=== PATIENT | male | born 1955 | race Caucasian/White ===

== ENCOUNTER → 2016-08-25 | Outpatient (CLI) | payer OTHER ==
[~2016-08-25] MED LIST: ADDERALL XR 2020 M1 PO; ADVAIR 2501 DISK W/D PO; ALBUTEROL17 GM INH; ALDACTONE25 MG PO; AMITRYPTYLINE PO; AMLODIPINE BESY10 MG PO; ASPIRIN PO; BENICAR HCT 40-1 TA1 PO; CARAFATE1 GM PO; CELEXA20 MG PO; CENTRUM PO; COREG3.125 M1 PO; CYANOCOBAL1000 MCG/1 INJ; DULERA 100 MCG/13 GM INH; FISH OIL 1,0001 CAP PO; FLOMAX0.4 M1 PO; HYDROCHLOROTHIA25 MG PO; LEXAPRO PO; LISINOPRIL20 MG PO; LOPRESSOR PO; NAPROXEN PO; NEXIUM PO; PLETAL100 M1 PO; PROTONIX PO; SKELAXIN PO; SPIRIVA18 MCG INH; SYMBICORT INH; TYLENOL PM PO; VIT B-12 PO; VITAMIN D350000 UNIT PO; VOLTAREN75 MG PO; ZETIA PO
--- NOTE | ~2016-08-25 | CT57 ---
[facility] A Service of [facility] RADIOLOGY TEXT RESULTS PATIENT: FRANK WHITLOCK LOCATION: CCAT : 55 UNIT #: [id number] AGE: [address]: Lyssa Smyth SEX: M ORDER DR: [id number] [facility] [address]. [place], [place] [address] [id number] O MR#: [id number] Acc #: [id number] NAME: FRANK WHITLOCK : 1955 SEX: M STUDY DATE/TIME: 08/25/2016 13:36 UNIT: [facility] ROOM: STUDY DESCRIPTION: CT Chest Wo Cont Attending Physician: Lyssa Smyth A.P.R.N. Referring Physician: Lyssa Smyth A.P.R.N. Ordering Physician: Lyssa Smyth A.P.R.N. Primary Care Physician: Lila Mcconnell M.D. MEDICAL IMAGING REPORT This report is preliminary unless electronic signature is present EXAM CT chest INDICATIONS Wheezing. Abnormal CT of the chest. Restaging. Pulmonary nodule. TECHNIQUE CT of the chest without contrast. Coronal and sagittal reconstructions were obtained. The CT exam was performed with one or more of the following radiation dose reduction techniques: automatic exposure control, adjustment of mA and/or kV according to patient size, and iterative reconstruction. COMPARISON CT chest dated 09/23/2015, 08/23/2015 and 09/24/2009. FINDINGS The heart is enlarged. There is a hiatal hernia containing abdominal fat. There is generalized mediastinal lipomatosis. Thin peripheral calcifications in the pericardium are unchanged. No pericardial or pleural effusion. No pathologically enlarged mediastinal or hilar lymph nodes. The main pulmonary artery is dilate measuring 3.6 cm suggesting component of pulmonary arterial hypertension. The thoracic aorta is normal in size. There is mild centrilobular emphysema in the lung apices. A small area of clustered tree-in-bud nodularity with associated interstitial thickening has developed in the posterior aspect of the right lower lobe and the left lower lobe. There are old left-sided rib fractures. STS. [facility] A Service of [facility] RADIOLOGY TEXT RESULTS PATIENT: FRANK WHITLOCK LOCATION: [facility] : 55 UNIT #: [id number] AGE: [address]: Lyssa Smyth SEX: M ORDER DR: IMPRESSION 1. Development of small areas of clustered tree-in-bud nodularity and associated interstitial thickening in the posterior right lower lobe and left lower lobe. This is most consistent with acute inflammatory/infectious process typically involving the small airways. No focal consolidation. 2. Mild centrilobular emphysema. 3. Dilated main pulmonary artery suggesting a component of pulmonary atrial hypertension. Dictated by... Tommy Villasenor M.D. THIS IS AN ELECTRONICALLY VERIFIED REPORT Tommy Villasenor M.D. at 08/26/2016 7:54 AM LUNA/jad TD: 08/26/2016 07:47 JOB #: [id number] MEDICAL IMAGING REPORT Page 1 of 1 COPY
== END | disposition home or self-care (01) ==
LOC: CCAT 13:12
DX: R06.2 Wheezing (principal); R93.8 Abnormal findings on diagnostic imaging of other specified body structures; J43.2 Centrilobular emphysema; I28.1 Aneurysm of pulmonary artery
CPT/HCPCS: 71250

== ENCOUNTER 2016-10-10 12:00 | Emergency (ER) | payer OTHER ==
--- NOTE | ~2016-10-10 | CR21 ---
[facility] A Service of [facility] & [facility] RADIOLOGY TEXT RESULTS PATIENT: FRANK WHITLOCK LOCATION: SED : 55 UNIT #: [id number] AGE: [address]: Brea Richard SEX: M ORDER DR: [id number] [place] [address] [id number] E MR#: [id number] Acc #: [id number] NAME: FRANK WHITLOCK : 1955 SEX: M STUDY DATE/TIME: 10/10/2016 12:34 UNIT: SED ROOM: STUDY DESCRIPTION: CR Ankle Min 3 Views Rt Attending Physician: Brea Richard P.A.-C. Ordering Physician: Brea Richard P.A.-C. Primary Care Physician: Lila Mcconnell M.D. MEDICAL IMAGING REPORT This report is preliminary unless electronic signature is present. EXAM Right ankle. INDICATIONS Pain for 3 days after rolling ankle. FINDINGS Three views of the right ankle were obtained. There is no fracture identified. There seems to be some medial soft tissue swelling. Bones are normal except for degenerative change at the tibiotalar joint. IMPRESSION Mild degenerative changes. Medial soft tissue swelling. Otherwise, normal. Dictated by... Josh Martel M.D. THIS IS AN ELECTRONICALLY VERIFIED REPORT Josh Martel M.D. at 10/11/2016 7:03 AM MURTAZA/tisha TD: 10/10/2016 21:46 JOB #: [id number] MEDICAL IMAGING REPORT Page 1 of 1
--- NOTE | ~2016-10-10 | CR127 ---
[facility] A Service [facility] RADIOLOGY TEXT RESULTS PATIENT: FRANK WHITLOCK LOCATION: SED : 55 UNIT #: [id number] AGE: [address]: Brea Richard SEX: M ORDER DR: [id number] [place] [address] [id number] E MR#: [id number] Acc #: [id number] NAME: FRANK WHITLOCK : 1955 SEX: M STUDY DATE/TIME: 10/10/2016 12:34 UNIT: SED ROOM: STUDY DESCRIPTION: CR Foot Complete Min 3 View Rt Attending Physician: Brea Richard P.A.-C. Ordering Physician: Brea Richard P.A.-C. Primary Care Physician: Lila Mcconnell M.D. MEDICAL IMAGING REPORT This report is preliminary unless electronic signature is present. EXAM Right foot. INDICATIONS Right foot pain after 3 days, after rolling ankle. DATE OF EXAM 10/10/16 COMPARISON None. FINDINGS Three views of the right foot were obtained. No fracture is visible. There is some calcaneal spurring present and there is some mild degenerative change at the first metatarsal phalangeal joint. IMPRESSION 1. Mild first MTP joint degenerative change. 2. No evidence of acute injury. Dictated by... Josh Martel M.D. THIS IS AN ELECTRONICALLY VERIFIED REPORT Josh Martel M.D. at 10/11/2016 7:03 AM MURTAZA/tisha TD: 10/10/2016 21:43 JOB #: [id number] [facility] A Service [facility] RADIOLOGY TEXT RESULTS PATIENT: FRANK WHITLOCK LOCATION: SED : 55 UNIT #: [id number] AGE: [address]: Brea Richard SEX: M ORDER DR: MEDICAL IMAGING REPORT Page 1 of 1
[~2016-10-10 12:00] MED LIST changes: -ADDERALL XR 2020 M1 PO; -ALBUTEROL17 GM INH; -ALDACTONE25 MG PO; -AMLODIPINE BESY10 MG PO; -ASPIRIN PO; -CARAFATE1 GM PO; -CELEXA20 MG PO; -COREG3.125 M1 PO; -CYANOCOBAL1000 MCG/1 INJ; -DULERA 100 MCG/13 GM INH; -FLOMAX0.4 M1 PO; -LISINOPRIL20 MG PO; -NAPROXEN PO; -PLETAL100 M1 PO; -PROTONIX PO; -SPIRIVA18 MCG INH; -VITAMIN D350000 UNIT PO
[2016-10-10 12:49] LABS: BASOPHIL# 0.1 X10e3 (0-0.3); BASOPHIL% 1.1 % (0-2.5); DIFF IND NO; EOSINOPHIL# 0.1 X10e3 (0-0.7); EOSINOPHIL% 1.3 % (0.0-7.0); HEMATOCRIT 44.6 % (38.0-50.0); LYMPHOCYTE# 1.8 X10e3 (1.0-3.5); LYMPHOCYTE% 22.2 % (17.0-45.0); MEAN CELL VOLUME 102.5 FL (83-96); MEAN CORPUSCULAR HEMOGLOBIN 34.4 PG (28-34); MEAN CORPUSCULAR HGB CONC 33.6 g/dL (30-36); MEAN PLATELET VOLUME 6.9 FL (6.5-11.5); MONOCYTE% 12.4 % (3.0-12.0); NEUTROPHIL# 5.2 X10e3 (1.5-7.1); PLATELET COUNT 336 X10e3 (140-420); RED BLOOD COUNT 4.35 X10e (3.90-5.60); RED CELL DISTRIBUTION WIDTH 15.4 % (11.0-15.5); WHITE BLOOD COUNT 8.3 X10e3 (4.0-10.5)
[2016-10-10 13:01] LABS: BUN/CREATININE RATIO 7.77; CALCIUM SERUM 8.3 mg/dL (8.4-10.2); CREATININE SERUM 0.9 mg/dL (0.6-1.4); GLOM FILT RATE Estimated 92.5 mL/min (>60); POTASSIUM 3.2 mmol/L (3.5-5.1); URIC ACID 7.4 mg/dL (2.6-7.2)
[2016-11-04] MEDS ORDERED: PLETAL100 M1 PO (10:52)
[2016-11-04] MEDS ORDERED: FLOMAX0.4 M1 PO (10:52)
[2016-11-04] MEDS ORDERED: COREG3.125 M1 PO (10:53)
[2016-11-04] MEDS ORDERED: SPIRIVA18 MCG INH (10:53)
[2016-11-04] MEDS ORDERED: NAPROXEN PO (10:53)
[2016-11-04] MEDS ORDERED: AMLODIPINE BESY10 MG PO (10:54)
[2016-11-04] MEDS ORDERED: DULERA 100 MCG/13 GM INH (10:54)
[2016-11-04] MEDS ORDERED: VITAMIN D350000 UNIT PO (10:55)
[2016-11-04] MEDS ORDERED: ALDACTONE25 MG PO (10:55)
[2016-11-05] MEDS ORDERED: CELEXA20 MG PO (10:30)
[2016-11-05] MEDS ORDERED: LISINOPRIL20 MG PO (10:31)
[2016-11-05] MEDS ORDERED: ALBUTEROL17 GM INH (12:13)
[2016-11-05] MEDS ORDERED: ASPIRIN PO (12:13)
[2016-11-05] MEDS ORDERED: ADDERALL XR 2020 M1 PO (13:21)
[2016-11-05] MEDS ORDERED: CYANOCOBAL1000 MCG/1 INJ (13:22)
[2016-11-05] MEDS ORDERED: CARAFATE1 GM PO (16:30)
[2016-11-05] MEDS ORDERED: PROTONIX PO (16:30)
== END 2016-10-10 14:01 | disposition home or self-care (01) ==
LOC: SED 12:00
PROVIDERS: Physician Assistant
DX: M79.671 Pain in right foot (principal); M25.571 Pain in right ankle and joints of right foot; I10 Essential (primary) hypertension; J44.9 Chronic obstructive pulmonary disease, unspecified; Z88.8 Allergy status to other drugs, medicaments and biological substances; Z79.82 Long term (current) use of aspirin; Z79.899 Other long term (current) drug therapy
CPT/HCPCS: 29515; 73610; 73630; 80048; 84550; 85025; 85651; 96372; 99283; J1885

== ENCOUNTER → 2016-11-05 | Day surgery (SDC) | payer OTHER ==
[~2016-11-05] MED LIST changes: +ADDERALL XR 2020 M1 PO; +ALBUTEROL17 GM INH; +ALDACTONE25 MG PO; +AMLODIPINE BESY10 MG PO; +ASPIRIN PO; +CARAFATE1 GM PO; +CELEXA20 MG PO; +COREG3.125 M1 PO; +CYANOCOBAL1000 MCG/1 INJ; +DULERA 100 MCG/13 GM INH; +FLOMAX0.4 M1 PO; +LISINOPRIL20 MG PO; +NAPROXEN PO; +PLETAL100 M1 PO; +PROTONIX PO; +SPIRIVA18 MCG INH; +VITAMIN D350000 UNIT PO
--- NOTE | ~2016-11-05 | OR ---
Unit #: [id number] #: [id number] Patient: FRANK WHITLOCK [id number] [address] [place], [place] [address] [id number] O MR#: [id number] NAME: FRANK WHITLOCK ROOM: Date of Procedure: 11/05/2016 Admission Date: 11/05/2016 Surgeon: Last Reynolds M.D. : 1955 Attending Physician: Last Reynolds M.D. Primary Care Physician: Lila Mcconnell M.D. OPERATIVE REPORT PRIMARY CARE PHYSICIAN Lila Mcconnell M.D. PREOPERATIVE DIAGNOSES Dysphagia, history of esophageal stricture, personal history of adenomatous polyps of colon, and family history of colon cancer. POSTOPERATIVE DIAGNOSES 6 cm hiatal hernia, gastritis, gastric ulcer, sigmoid diverticulosis, colon polyps x3. PROCEDURES PERFORMED Esophagogastroduodenoscopy to third portion of the duodenum with LILIA testing and biopsy x2; colonoscopy to cecum with snare polypectomy x3. ANESTHESIA Monitored anesthesia. INDICATIONS FOR PROCEDURE A 60-year-old gentleman with a personal history of a Schatzki ring presents with intermittent dysphagia for solids. He also is due for surveillance colonoscopy as he has a personal history of adenomatous polyps of the colon and a family history of colon cancer in first-degree relatives. DESCRIPTION OF PROCEDURE The patient was admitted to [facility], positively identified, transported to the endoscopy unit and after appropriate monitoring and positioning, he was sedated by the anesthesiologist. A bite block had been placed and the endoscope was passed through the oral cavity into esophagus and under direct vision, we passed through the esophagus and identified the GE junction. The GE junction was noted to be at 36 cm from the incisors. He had a measurable 6 cm hiatal hernia. There was no Schatzki ring, no esophagitis, and no Lundberg mucosa. I insufflated the stomach and he had pangastritis and a CLOtest was taken from the antrum. In the pyloric channel, he had a superficial gastric ulcer with no visible vessel or evidence of any bleeding. However, it was a cratered ulcer that did not have malignant appearing features. Biopsies from the edge of the ulcer were taken to rule out malignancy. I was able to pass the scope down the third portion of the duodenum. Duodenum and duodenal bulb were normal. Once the scope was brought back into the stomach, I retroflexed above the incisura. No other findings in the upper Unit #: [id number] #: [id number] Patient: FRANK WHITLOCK fundus or cardia were noted. As I came back in a retrograde fashion, again I measured the hiatal hernia at 6 cm and the esophagus showed no stricture, no narrowing, no Schatzki ring, no esophagitis, no Lundberg mucosa, no diverticula. The larynx was not visualized due to gagging. After completion of the upper endoscopy, the patient was repositioned. On rectal examination, there was no local anorectal pathology. I could not palpate any abnormality of the prostate. Colonoscope was passed through the anal verge throughout the extent of the colon to the cecum where the appendiceal orifice and ileocecal valve were photodocumented. On antegrade and retrograde visualization, he was noted to have sigmoid diverticulosis. As I came back in a retrograde fashion, he had several hyperplastic appearing polyps, but he had three adenomatous appearing polyps that were all removed by snare polypectomy and sent to the laboratory. There was no internal hemorrhoidal disease. The patient tolerated the procedure well and was transported to recovery in stable condition. Postoperatively, he is be started on Protonix and Carafate as we await the biopsy results. It was recommended he take a high-fiber diet. We will make recommendations about his followup colonoscopy based on the pathology. I will call him with the results. Dictated by... David John/anupam TD: 11/06/2016 14:23 JOB #: [id number] OPERATIVE REPORT Page 1 of 1 X Last Reynolds MD X PROCEDURE OPERATIVE NOTE
== END | disposition home or self-care (01) ==
LOC: COPS 12:24
DX: Z12.11 Encounter for screening for malignant neoplasm of colon (principal); K62.1 Rectal polyp; K29.50 Unspecified chronic gastritis without bleeding; K31.9 Disease of stomach and duodenum, unspecified; K44.9 Diaphragmatic hernia without obstruction or gangrene; K57.30 Diverticulosis of large intestine without perforation or abscess without bleeding; I10 Essential (primary) hypertension; G47.30 Sleep apnea, unspecified; I73.9 Peripheral vascular disease, unspecified; J45.909 Unspecified asthma, uncomplicated; M15.9 Polyosteoarthritis, unspecified; J44.9 Chronic obstructive pulmonary disease, unspecified; K21.9 Gastro-esophageal reflux disease without esophagitis; F41.8 Other specified anxiety disorders; Z86.010 Personal history of colon polyps; Z87.19 Personal history of other diseases of the digestive system; Z87.891 Personal history of nicotine dependence; Z80.0 Family history of malignant neoplasm of digestive organs; Z88.8 Allergy status to other drugs, medicaments and biological substances; Z79.82 Long term (current) use of aspirin; Z79.51 Long term (current) use of inhaled steroids; Z79.899 Other long term (current) drug therapy; Z95.1 Presence of aortocoronary bypass graft; Z98.890 Other specified postprocedural states
CPT/HCPCS: 87077; 88305; J2250